=== PATIENT | male | born 1985 | race American Indian/Alaskan Native ===

== ENCOUNTER 2018-03-11 08:18 | Emergency (ER) | payer SELFPAY ==
[2018-03-11 08:42] VITALS: BP 153/73
[2018-03-11] MEDS ORDERED: NACL 0.9% 1000 ML 1,000 ML IV ONE (08:42)
== END 2018-03-11 08:55 | disposition left against medical advice (07) ==
LOC: ED 08:18
DX: R10.9 Unspecified abdominal pain (principal); Z53.21 Procedure and treatment not carried out due to patient leaving prior to being seen by health care provider